=== PATIENT | female | born 1950 | race Caucasian/White ===

== ENCOUNTER → 2023-12-24 07:40 | Outpatient (REF) | payer OTHER, SELFPAY | LOC: HWRAD 07:40 | PROVIDERS: ATTENDING PHYSICIAN Student in an Organized Health Care Education/Training Program; REFERRING PHYSICIAN Internal Medicine Endocrinology, Diabetes & Metabolism | DX: E04.2 Nontoxic multinodular goiter (principal) | CPT/HCPCS: 76536 ==

== ENCOUNTER → 2024-01-13 12:16 | Outpatient (REF) | payer OTHER, SELFPAY ==
[2024-01-13 12:35] VITALS: BP 141/61; BP_SYST 62
== END ==
LOC: RADI 12:16
PROVIDERS: ATTENDING PHYSICIAN Student in an Organized Health Care Education/Training Program; REFERRING PHYSICIAN Internal Medicine Endocrinology, Diabetes & Metabolism
DX: E04.2 Nontoxic multinodular goiter (principal)
CPT/HCPCS: 88173; 10005; 10006

== ENCOUNTER → 2024-03-02 11:51 | Outpatient (REF) | payer OTHER, SELFPAY | LOC: HWRAD 11:51 | PROVIDERS: ATTENDING PHYSICIAN Student in an Organized Health Care Education/Training Program | DX: Z12.31 Encounter for screening mammogram for malignant neoplasm of breast (principal); Z78.0 Asymptomatic menopausal state; N95.1 Menopausal and female climacteric states | CPT/HCPCS: 77063; 77067; 77080 ==

== ENCOUNTER → 2025-01-06 12:43 | Outpatient (REF) | payer OTHER, SELFPAY | LOC: RAD 12:43 | PROVIDERS: ATTENDING PHYSICIAN Internal Medicine Endocrinology, Diabetes & Metabolism; FAMILY PHYSICIAN Family Medicine | DX: E04.2 Nontoxic multinodular goiter (principal) | CPT/HCPCS: 76536 ==

== ENCOUNTER → 2025-03-27 10:09 | Outpatient (REF) | payer OTHER, SELFPAY | LOC: RAD 10:09 | PROVIDERS: ATTENDING PHYSICIAN Family Medicine | DX: M51.362 Other intervertebral disc degeneration, lumbar region with discogenic back pain and lower extremity pain (principal) | CPT/HCPCS: 72110 ==

== ENCOUNTER → 2025-04-18 07:56 | Outpatient (REF) | payer OTHER, SELFPAY | LOC: HWWDC 07:56 | PROVIDERS: ATTENDING PHYSICIAN Family Medicine | DX: Z12.31 Encounter for screening mammogram for malignant neoplasm of breast (principal) | CPT/HCPCS: 77063; 77067 ==

== ENCOUNTER 2025-04-19 05:55 | Outpatient (RCR) | payer OTHER, SELFPAY | END 2025-04-19 23:59 | disposition home or self-care (01) | LOC: RPT 05:55 | PROVIDERS: ATTENDING PHYSICIAN Family Medicine | DX: M51.362 Other intervertebral disc degeneration, lumbar region with discogenic back pain and lower extremity pain (principal); Z73.6 Limitation of activities due to disability | CPT/HCPCS: 97112; 97162 ==

== ENCOUNTER 2025-04-27 13:00 | Outpatient (RCR) | payer OTHER, SELFPAY | END 2025-04-27 23:59 | disposition home or self-care (01) | LOC: RPT 13:00 | PROVIDERS: ATTENDING PHYSICIAN Family Medicine | DX: M51.362 Other intervertebral disc degeneration, lumbar region with discogenic back pain and lower extremity pain (principal); Z73.6 Limitation of activities due to disability | CPT/HCPCS: 97110; 97112 ==